=== PATIENT | female | born 1955 ===

== ENCOUNTER 2017-01-14 05:50 | Day surgery (SDC) | payer BC ==
[2017-01-13 15:34] LABS: HEMATOCRIT 42.1 % (36.0-48.0); HEMOGLOBIN 13.9 g/dL (12-16); MCH 30.2 pg (26.0-34.0); MCV 91.3 fL (80.0-100.0); RBC 4.61 10x6/uL (4.00-5.40); RDW 12.7 % (11.5-14.5); WBC 3.3 10x3/uL (4.8-10.8)
[2017-01-14 06:40] VITALS: BP 114/65; BMI 19.5
--- NOTE | 2017-01-14 13:09 | OP ---
PATIENT NAME: ABE PETERSEN MEDICAL RECORD: [id number] :57 LOCATION:D.OPS ADMISSION DATE: SURGEON: KRISS CRISOSTOMO DPM DATE OF OPERATION: 01/14/2017 PREOPERATIVE DIAGNOSES: 1. Hallux abductovalgus, left foot. 2. Hammertoe deformity, left second and third digits. POSTOPERATIVE DIAGNOSES: 1. Hallux abductovalgus, left foot. 2. Hammertoe deformity, left second and third digits. PROCEDURES: 1. Savanna osteotomy, left hallux. 2. PIPJ fusion, left second. 3. PIPJ fusion, left third digit. ANESTHESIA: Local with IV sedation utilizing lidocaine and Marcaine plain, approximately 15 cc total around the first, second, and third digits. HEMOSTASIS: Left thigh tourniquet at 350 mmHg. PREOPERATIVE DETAILS: The patient was taken to the OR, placed on the operating table in supine position followed by induction of general anesthesia and infiltration of local anesthetic. The left extremity was then prepped and draped in usual aseptic technique followed by exsanguination and inflation of tourniquet. Procedure #1, savanna osteotomy, left hallux: A 15 blade was used to create a 2 cm linear incision over the dorsal aspect of the proximal phalanx and hallux. The incision was deepened down through subcutaneous tissue to the periosteum. Periosteal incision was made and the dorsal aspect of the proximal phalanx was delivered utilizing fluoroscopy, a guidewire was placed across the osteotomy and a 2.5 headless screw was placed across the osteotomy due to the fact that there was not excellent rigid fixation. A second screw was placed under a guidewire with fluoroscopy dorsal to it. This noted excellent rigid fixation as well as compression of the osteotomy. The periosteum was then closed with 4-0 Vicryl, the subcutaneous tissue with 4-0 Rapide, and the skin was closed with 4-0 Prolene in a subcuticular technique followed by Dermabond. Procedure #2, PIPJ fusion, left 2nd digit: A 15-blade was used to create 2 transverse incisions over the dorsal aspect of the PIPJ. The incision WAS deepened down through subcutaneous tissue to the extensor longus tendon, which was transected. 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 A sagittal saw was used to resect the head of the proximal phalanx and the base of the middle phalanx. A drill hole was made in both followed by placement of the bone graft across the fusion site with the capital fragment on top of the bone graft compressing the fusion site with excellent alignment of the fusion site. The extensor longus tendon was repaired with 4-0 Vicryl followed by closure of the skin with 4-0 Prolene in a simple interrupted technique. Procedure #3, PIPJ fusion, left third digit: Procedure was performed as described in #2 without variation and no complication. Adaptic, 4 x 4, and Conform were used to dress the wounds followed by Richard. Tourniquet was OPERATIVE REPORT [id number] ABE PETERSEN deflated. POSTOPERATIVE DETAILS: The patient tolerated the procedure well and left the OR with vital signs stable and vascular status at preoperative levels. The patient was transported to recovery per anesthesia in stable condition. TRANSINT:[id number] Voice Confirmation ID: [id number] DOCUMENT ID: [id number] KRISS CRISOSTOMO DPM at 1309 CC: [id number] DICTATION DATE: 01/14/17 0950 COST ACCOUNTING MANAGER: 01/14/17 1203 PRE [facility] [address] [place] [address]
--- NOTE | 2017-01-14 14:57 | NUR ---
1200--PT VOIDS WITHOUT DIFFICULTY, IV DC'D. SATURNINO RN 1230--PT'S RIDE IS HERE. DISCHARGE INSTRUCTIONS GIVEN, PT VERBALIZES UNDERSTANDING. PT OFF UNIT VIA WC. SATURNINO JARVIS
== END 2017-01-14 12:30 | disposition home or self-care (01) ==
LOC: D.OPS 05:50 → D.PAN 08:15 → D.OPS 12:30
PROVIDERS: Anesthesiology
DX: M20.12 Hallux valgus (acquired), left foot (principal); M20.42 Other hammer toe(s) (acquired), left foot